=== PATIENT | female | born 1985 | race Caucasian/White ===

== ENCOUNTER 2022-02-28 20:16 | Day surgery (SDC) | payer OTHER ==
[2022-02-28] MEDS ORDERED: hydrALAZINE 20 MG/ML VIAL SLOW IVP PRN (20:34)
[2022-02-28 20:55] LABS: Fetal Membranes Rupture No Membranes Rupture (No Rupture)
[2022-02-28 21:03] LABS: #Basophils 0.1 10x3/uL (0.0-0.2); #Eosinphils 0.3 10x3/uL (0.0-0.5); #Monocytes 0.8 10x3/uL (0.0-1.1); #Neutrophils 7.6 10x3/uL (1.5-8.4); %Basophils 0.5 % (0.0-2.0); %Eosinophils 2.7 % (0.0-6.0); %Monocytes 6.4 % (0.0-10.0); %Neutrophils 61.2 % (40.0-75.0); Hemoglobin 11.7 g/dL (12.0-15.5); Mean Corpuscular HGB CONC 34.6 g/dL (32.0-36.0); Mean Corpuscular Hemoglobin 30.3 pg (27.0-33.0); Mean Corpuscular Volume 87.6 fl (81.6-98.3); Mean Platelet Volume 8.3 fl (7.4-10.4); Platelet Count 438 10x3/uL (150-450); Red Blood Cell (RBC) Count 3.86 10x6/uL (3.90-5.03); White Blood Cell (WBC) Count 12.4 10x3/uL (3.5-10.5)
[2022-02-28 21:05] LABS: Creatinine, Urine 51.04 mg/dL (47-110); Protein, Urine Random Quant Less than 10 mg/dL (1-14)
[2022-02-28 21:21] LABS: ALT (SGPT) 11 U/L (8-55); AST (SGOT) 13 U/L (5-34); Albumin 3.4 g/dL (3.5-5.0); Alkaline Phosphatase 95 U/L (40-110); Anion Gap 13 mmol/L (10-20); BUN (Urea Nitrogen) 6 mg/dL (7.0-18.7); Bilirubin, Total 0.2 mg/dL (0.2-1.2); Calc. Creatinine Clearance 0 mL/min (70-130); Calcium 9.6 mg/dL (7.8-10.44); Carbon Dioxide 21 mmol/L (22-29); Chloride 106 mmol/L (98-107); Estimated GFR 120; Globulin 3.5 g/dL (2.4-3.5); Glucose 118 mg/dL (70-105); Potassium 4.2 mmol/L (3.5-5.1); Protein, Total 6.9 g/dL (6.0-8.3); Sodium 136 mmol/L (136-145)
== END 2022-02-28 21:50 | disposition home or self-care (01) ==
LOC: CSHLD/OP 20:16
PROVIDERS: ATTEND Emergency Medicine
DX: O13.3 Gestational [pregnancy-induced] hypertension without significant proteinuria, third trimester (principal); O42.92 Full-term premature rupture of membranes, unspecified as to length of time between rupture and onset of labor; O99.333 Smoking (tobacco) complicating pregnancy, third trimester; F17.200 Nicotine dependence, unspecified, uncomplicated; Z79.899 Other long term (current) drug therapy; Z3A.37 37 weeks gestation of pregnancy
CPT/HCPCS: 36415; 80053; 82570; 84112; 84156; 85025; 99283

== ENCOUNTER 2022-03-11 05:41 | Inpatient (IN) | payer OTHER ==
[2022-03-10 13:05] LABS: #Basophils 0.1 10x3/uL (0.0-0.2); #Eosinphils 0.3 10x3/uL (0.0-0.5); #Monocytes 0.7 10x3/uL (0.0-1.1); %Eosinophils 3.4 % (0.0-6.0); %Lymphocytes 35.7 % (18.0-47.0); %Monocytes 7.2 % (0.0-10.0); %Neutrophils 52.4 % (40.0-75.0); Hemoglobin 11.8 g/dL (12.0-15.5); Mean Corpuscular HGB CONC 34.3 g/dL (32.0-36.0); Mean Corpuscular Hemoglobin 30.9 pg (27.0-33.0); Mean Corpuscular Volume 90.1 fl (81.6-98.3); Mean Platelet Volume 8.6 fl (7.4-10.4); Platelet Count 472 10x3/uL (150-450); RBC Distribution Width 13.7 % (11.5-14.5); Red Blood Cell (RBC) Count 3.82 10x6/uL (3.90-5.03); White Blood Cell (WBC) Count 9.6 10x3/uL (3.5-10.5)
[2022-03-10 13:21] LABS: ALT (SGPT) 12 U/L (8-55); AST (SGOT) 15 U/L (5-34); Albumin 3.3 g/dL (3.5-5.0); Alkaline Phosphatase 105 U/L (40-110); Anion Gap 12 mmol/L (10-20); BUN (Urea Nitrogen) 4 mg/dL (7.0-18.7); Bilirubin, Total 0.2 mg/dL (0.2-1.2); Calc. Creatinine Clearance 0 mL/min (70-130); Calcium 8.9 mg/dL (7.8-10.44); Carbon Dioxide 20 mmol/L (22-29); Chloride 107 mmol/L (98-107); Estimated GFR 123; Globulin 3.3 g/dL (2.4-3.5); Glucose 79 mg/dL (70-105); Potassium 3.9 mmol/L (3.5-5.1); Protein, Total 6.6 g/dL (6.0-8.3); Sodium 135 mmol/L (136-145)
[2022-03-10 13:38] LABS: HBSAg Index 0.23 S/CO (0-0.99); Hep B Surf Ag Non-Reactive S/CO (NonReactive); Syphilis Antibody Nonreactive (Nonreactive); Syphilis Antibody Index 0.15 S/CO (<1.00 Non-Reactive)
[2022-03-10 14:15] LABS: SARS-CoV-2 NAA Rapid Test Not Detected (NotDetected)
[2022-03-11 06:14] VITALS: BMI 37.4
[2022-03-11] MEDS ORDERED: Docusate 100 MG CAP PO PRN (06:28)
[2022-03-11] MEDS ORDERED: Famotidine/PF 20 mg/2ml Vial SLOW IVP PRN (06:28)
[2022-03-11] MEDS ORDERED: Ondansetron PF 4 MG/2 ML Vial IVP PRN ×3 (06:28→11:43)
[2022-03-11] MEDS ORDERED: Bicitra 30 ML UDCUP PO PRN (06:28)
[2022-03-11] MEDS ORDERED: Butorphanol Tartrate 1 MG/ML VIAL SLOW IVP PRN (06:28)
[2022-03-11] MEDS ORDERED: Promethazine HCl 25 MG/ML VIAL IM PRN ×3 (06:28→11:43)
[2022-03-11] MEDS ORDERED: Acetaminophen 500 MG TAB PO PRN (06:28)
[2022-03-11] MEDS ORDERED: hydrALAZINE 20 MG/ML VIAL SLOW IVP PRN ×2 (06:28→11:43)
[2022-03-11] MEDS ORDERED: Lactated Ringer's 1,000 ML IV SCH (06:30)
[2022-03-11] MEDS ORDERED: CEFAZOLIN 2 GM in Sodium Chloride 0.9% 100 ML IVPB SCH (06:30)
[2022-03-11] MEDS ORDERED: Ondansetron PF 4 MG/2 ML Vial ONE (07:02)
[2022-03-11] MEDS ORDERED: Oxytocin 10 UNITS/ML VIAL ONE (07:02)
[2022-03-11] MEDS ORDERED: Metoclopramide HCl 10 MG/2 ML VIAL ONE (07:02)
[2022-03-11] MEDS ORDERED: Phenylephrine 40 MG/NS 250 ML 250 ML ONE (07:02)
[2022-03-11] MEDS ORDERED: Ketorolac Tromethamine 30 MG/ML VIAL ONE (07:02)
[2022-03-11] MEDS ORDERED: Dexamethasone 4 mg/ml Vial ONE (07:03)
[2022-03-11] MEDS ORDERED: Morphine PF 10 MG/10 ML VIAL ONE (07:04)
[2022-03-11] MEDS ORDERED: Midazolam HCl 2 mg/2 ml Vial ONE ×2 (07:28→08:47)
[2022-03-11] MEDS ORDERED: Methylergonovine 0.2 MG/ML VIAL ONE (08:46)
[2022-03-11] MEDS ORDERED: Meperidine HCl/PF 25 MG/ML VIAL SLOW IVP PRN (09:17)
[2022-03-11] MEDS ORDERED: Ondansetron HCl/PF 4 MG/2 ML Vial IVP PRN (09:17)
[2022-03-11] MEDS ORDERED: Naloxone HCl 0.4 mg/ml Vial IVP PRN ×2 (09:17)
[2022-03-11] MEDS ORDERED: Naloxone HCl 0.4 mg/ml Vial IV PRN (09:17)
[2022-03-11] MEDS ORDERED: diphenhydrAMINE 50 MG/ML VIAL IVP PRN (09:17)
[2022-03-11] MEDS ORDERED: Moisturizing Cream (Eucerin) 113 GM JAR TOP PRN (09:17)
[2022-03-11] MEDS ORDERED: Fentanyl 100 MCG/2 ML VIAL SLOW IVP PRN (09:17)
[2022-03-11] MEDS ORDERED: L&D-Morphine 4 MG/ML VIAL SLOW IVP PRN (09:17)
[2022-03-11] MEDS ORDERED: Promethazine HCl 25 MG SUPP PR PRN (09:17)
[2022-03-11] MEDS ORDERED: Communication Order-Pharmacy FS SCH (09:30)
[2022-03-11] MEDS ORDERED: Boostrix 0.5 ML (Tdap) VIAL (>/=7 yrs of age) IM ONE (11:43)
[2022-03-11] MEDS ORDERED: Simethicone Chewable 80 MG TAB PO PRN (11:43)
[2022-03-11] MEDS ORDERED: Misoprostol 200 MCG TAB PR PRN (11:43)
[2022-03-11] MEDS ORDERED: NS w/ Oxytocin 30 units 500 ML IV SCH (11:43)
[2022-03-11] MEDS: Lactated Ringer's 1,000 ML IV SCH ×2 (11:57→15:59)
[2022-03-11] MEDS ORDERED: Ketorolac Tromethamine 30 MG/ML VIAL IVP PRN ×2 (12:06→15:00)
[2022-03-11] MEDS ORDERED: Ibuprofen 800 MG TAB PO PRN (12:08)
[2022-03-11] MEDS ORDERED: Ibuprofen 800 MG TAB PO SCH (14:00)
[2022-03-11] MEDS: Simethicone Chewable 80 MG TAB PO SCH ×2 (17:31→21:26)
[2022-03-11] MEDS: Ketorolac Tromethamine 30 MG/ML VIAL IVP SCH ×2 (17:31→23:46)
[2022-03-11] MEDS ORDERED: Ketorolac Tromethamine 30 MG/ML VIAL IVP SCH (18:00)
[2022-03-11] MEDS: Docusate 100 MG CAP PO SCH (21:26)
[2022-03-11] MEDS: HYDROcodone/Acetaminophen 5/325 mg Tablet PO PRN (21:26)
[2022-03-11] MEDS ORDERED: HYDROcodone/Acetaminophen 5/325 mg Tablet PO PRN (22:00)
[2022-03-12] MEDS: Ferrous Sulfate 325 MG TAB PO SCH ×3 (04:00→20:00)
[2022-03-12] MEDS: Lactated Ringer's 1,000 ML IV SCH ×2 (04:01→08:12)
[2022-03-12] MEDS: Simethicone Chewable 80 MG TAB PO SCH ×6 (04:38→20:00)
[2022-03-12 04:46] LABS: Hemoglobin 9.5 g/dL (12.0-15.5); Mean Corpuscular HGB CONC 34.2 g/dL (32.0-36.0); Mean Corpuscular Hemoglobin 30.6 pg (27.0-33.0); Mean Corpuscular Volume 89.7 fl (81.6-98.3); Mean Platelet Volume 8.8 fl (7.4-10.4); Platelet Count 358 10x3/uL (150-450); RBC Distribution Width 13.8 % (11.5-14.5)
[2022-03-12] MEDS: Ketorolac Tromethamine 30 MG/ML VIAL IVP SCH ×3 (06:19→17:42)
[2022-03-12] MEDS: Bupropion 150 MG SR TAB PO SCH (08:00)
[2022-03-12] MEDS: Prenatal Vitamin 1 TAB PO SCH (08:00)
[2022-03-12] MEDS: Docusate 100 MG CAP PO SCH ×2 (08:01→20:00)
[2022-03-12] MEDS: busPIRone HCl 15 MG TAB PO SCH (08:02)
[2022-03-12] MEDS: HYDROcodone/Acetaminophen 5/325 mg Tablet PO PRN ×3 (08:04→21:11)
[2022-03-12] MEDS ORDERED: HYDROcodone/Acetaminophen 5/325 mg Tablet PO PRN (08:34)
[2022-03-12] MEDS: HYDROcodone/Acetaminophen 10/325 mg Tablet PO SCH ×2 (12:15→17:39)
[2022-03-12] MEDS ORDERED: HYDROcodone/Acetaminophen 7.5/325 mg Tablet PO SCH (14:00)
[2022-03-13] MEDS: HYDROcodone/Acetaminophen 10/325 mg Tablet PO SCH ×3 (00:16→12:10)
[2022-03-13] MEDS: Simethicone Chewable 80 MG TAB PO SCH ×4 (00:19→12:11)
[2022-03-13] MEDS: Ketorolac Tromethamine 30 MG/ML VIAL IVP SCH ×2 (00:23→05:43)
[2022-03-13 07:34] VITALS: BP 118/60; TEMP 97.7
[2022-03-13] MEDS: Ferrous Sulfate 325 MG TAB PO SCH (08:41)
[2022-03-13] MEDS: Prenatal Vitamin 1 TAB PO SCH (08:41)
[2022-03-13] MEDS: busPIRone HCl 15 MG TAB PO SCH (08:41)
[2022-03-13] MEDS: Docusate 100 MG CAP PO SCH (08:41)
[2022-03-13] MEDS: Bupropion 150 MG SR TAB PO SCH (08:42)
[2022-03-13] MEDS: HYDROcodone/Acetaminophen 5/325 mg Tablet PO PRN (08:46)
== END 2022-03-13 12:25 | disposition home or self-care (01) | DRG 784 ==
LOC: CSHLD 05:41 → CSHANTE 10:55
PROVIDERS: ADMIT Student in an Organized Health Care Education/Training Program; ATTEND Student in an Organized Health Care Education/Training Program
PROC: 10D00Z1 Extraction of Products of Conception, Low, Open Approach (ICD-10-PCS; principal; 2022-03-11)
PROC: 0UB70ZZ Excision of Bilateral Fallopian Tubes, Open Approach (ICD-10-PCS; 2022-03-11)
DX: O34.211 Maternal care for low transverse scar from previous cesarean delivery (principal); O99.355 Diseases of the nervous system complicating the puerperium; Z3A.39 39 weeks gestation of pregnancy; Z37.0 Single live birth; Z20.822 Contact with and (suspected) exposure to COVID-19; F17.210 Nicotine dependence, cigarettes, uncomplicated; O99.334 Smoking (tobacco) complicating childbirth; F32.9 Major depressive disorder, single episode, unspecified; K21.9 Gastro-esophageal reflux disease without esophagitis; O99.344 Other mental disorders complicating childbirth; O99.62 Diseases of the digestive system complicating childbirth; Z79.899 Other long term (current) drug therapy; Z79.82 Long term (current) use of aspirin; O69.2XX0 Labor and delivery complicated by other cord entanglement, with compression, not applicable or unspecified; G89.4 Chronic pain syndrome
CPT/HCPCS: 36415; 51702; 80053; 85025; 85027; 86780; 86850; 86900; 86901; 87340; 88302; J1100; J1885; J2210; J2250; J2274; J2405; J2590; J2765; S0028; U0002